=== PATIENT | male | born 2000 | race Caucasian/White ===

== ENCOUNTER 2021-11-21 00:30 | Emergency (ER) | payer BC ==
[~2021-11-21] VITALS: Ht 195.6 cm; Wt 93.0 kg
[2021-11-21 01:56] VITALS: BP 124/77
[2021-11-21] MEDS ORDERED: HYDROCODONE/ACETAMINOPHEN 10/325 MG TAB ONE (02:07)
[2021-11-21] MEDS ORDERED: ACET-2079 PO (02:24)
== END 2021-11-21 02:36 | disposition home or self-care (01) ==
LOC: EDH 00:30 → EDSEX 00:30 → EDH 02:36
DX: S99.912A Unspecified injury of left ankle, initial encounter (principal); X50.1XXA Overexertion from prolonged static or awkward postures, initial encounter; Y93.67 Activity, basketball; Y92.89 Other specified places as the place of occurrence of the external cause; Y99.8 Other external cause status
CPT/HCPCS: 73610